=== PATIENT | female | born 1955 | race Caucasian/White ===

== ENCOUNTER → 2016-07-09 | Outpatient (CLI) | payer OTHER ==
--- NOTE | 2016-07-09 12:41 | MR ---
EXAMINATION: MRI of the left knee HISTORY: Pain COMPARISON: None TECHNIQUE: Multiplanar and multisequence images obtained of the left knee without contrast. FINDINGS: The patellar and quadriceps tendons are intact. The ACL and the PCL are intact. Lateral m eniscus appears intact. There is a complex tear of the body and posterior horn of the medial meniscu s with moderate extrusion. The overlying medial collateral ligament appears intact. Lateral collater al ligament complex appears intact. There is moderate articular cartilage thinning within the patell ofemoral compartment and less so within the medial compartment. Mild subchondral edema is noted. No suspicious bone marrow signal changes. There is a small joint effusion. No significant Tellez's cyst. There is mild edema within the suprapatellar fat pad. IMPRESSION: 1. Complex tear of the body and posterior horn of the medial meniscus. 2. Osteoarthritic changes and moderate articular cartilage thinning within the patellofemoral compar tment and less so within the medial compartment. 3. Small joint effusion.
== END ==
LOC: MW.MRI 08:23
PROVIDERS: ATTEND Family Medicine
DX: M25.562 Pain in left knee (principal); S83.232A Complex tear of medial meniscus, current injury, left knee, initial encounter; M17.12 Unilateral primary osteoarthritis, left knee; M25.462 Effusion, left knee
CPT/HCPCS: 73721-26-LT; 73721-LT